=== PATIENT | male | born 1935 | race Caucasian/White ===

== ENCOUNTER 2022-08-01 12:52 | Inpatient (IN) | payer MEDICARE, OTHER, SELFPAY ==
[2022-08-01] VITALS (36 sets, daily range): BP systolic 150–203; BP diastolic 67–126; PULSE 85–118; RESP 18–31; TEMP 36.2–36.4; O2SAT 90–100
--- NOTE | ~2022-08-01 | XR_ITS ---
EXAMINATION: XR chest 2V Exam Date/Time: 08/01/2022 20:11 COMMISSARY AGENT HISTORY: SOB Comparison: None available. RESULT: Lines, tubes, and devices: None. Lungs and pleura: Diffuse reticular opacities with cuffing. Bilateral mild costophrenic angle blunti ng. Streaky bibasilar opacities. Cardiomediastinal silhouette: Stable. Other: No acute osseous or upper abdominal finding. IMPRESSION: Interstitial pulmonary edema. Small bilateral effusions. Bibasilar atelectasis. Reviewed, dictated and finalized at location K. ISSARY AGENT
--- NOTE | ~2022-08-01 | US_ITS ---
EXAMINATION: US venous doppler [facility] DATE: 08/02/2022 17:26 INDICATION: +DDimer . TECHNIQUE: Grayscale images without and with compression and Doppler images of the bilateral lower ex tremity veins were obtained. COMPARISON: None FINDINGS: The right common femoral vein, profunda (deep) femoral vein, femoral vein, popliteal vein, peroneal v ein, posterior tibial veins, gastrocnemius vein, and greater saphenous vein are patent. Harding's cyst. The left common femoral vein, profunda femoral vein, femoral vein, popliteal vein, peroneal vein, pos terior tibial veins, gastrocnemius vein, and greater saphenous vein are patent. IMPRESSION: 1. Patent bilateral lower extremity veins. No evidence of deep venous thrombosis. Reviewed, dictated and finalized at location K. EL OCCUPATIONAL THERAPIST IMPRESSION: 1. Patent bilateral lower extremity veins. No evidence of deep venous thrombos is.
--- NOTE | ~2022-08-01 | CT_ITS ---
EXAMINATION: CTA chest PE protocol DATE: 08/01/2022 22:43 INDICATION: difficulty breathin TECHNIQUE: Computed tomography angiography (CTA) of the chest was performed with 100 mL Omnipaque-350 intravenous contrast timed to evaluate the pulmonary arteries. Coronal maximum intensity projection 3D-reconstructions were created by the technologist. The dose-length product (DLP) was 361.93 mGy-cm. Automated exposure control and iterative reconstruction technique were employed. COMPARISON: None. FINDINGS: Lung parenchyma and airways: Fissural fluid. Interlobular septal thickening. Senescent changes. Depen dent atelectasis. Pleura: Moderate volume bilateral pleural fluid collections.. Thoracic inlet, axillae and chest wall: Unremarkable. Thoracic aorta: Moderate arch calcification. Mediastinum: Normal. Heart and pericardium: Normal. Coronary artery calcifications: Moderate. Upper abdomen: No significant finding. Bones: No acute osseous finding. Pulmonary arteries: Study quality: Adequate. No pulmonary emboli detected. IMPRESSION: No CT evidence of acute pulmonary embolus. Pulmonary edema. Moderate bilateral pleural effusions. Reviewed, dictated and finalized at location K. IC HEALTH TECHNOLOGIST
--- NOTE | ~2022-08-01 | US_ITS ---
EXAMINATION: US renal BI DATE: 08/02/2022 17:26 INDICATION: renal insuff TECHNIQUE: Multiple grayscale and Doppler ultrasound images of the kidneys were obtained. COMPARISON: None. FINDINGS: The right kidney measures 10.4 x 5.1 x 5.6 cm. The left kidney measures 10.8 x 5.8 x 6.1 cm. The kidn eys demonstrate normal parenchymal echogenicity. There is no hydronephrosis. The bladder is normal. IMPRESSION: Unremarkable renal sonogram findings. Reviewed, dictated and finalized at location K. LACE TIPPING MACHINE OPERATOR
--- NOTE | 2022-08-01 20:26 | ECG_ITS ---
Measurements Intervals [place] Rate: 92 P: -1 MD: 143 QRS: -35 QRSD: 133 T: 127 QT: 378 QTc: 468 Interpretive Statements SINUS RHYTHM LEFT AXIS DEVIATION INTRAVENTRICULAR CONDUCTION DELAY LEFT VENTRICULAR HYPERTROPHY AND ST-T CHANGE CANNOT RULE OUT SEPTAL INFARCT, AGE INDETERMINATE BASELINE ARTIFACT- I, II, AVR, V1, V3, V6 ABNORMAL ECG NO PREVIOUS ECG AVAILABLE FOR COMPARISON Electronically Signed On 08-02-2022 6:52:38 COLD MEAT CHEF by Abhishek Downey D.O.
[2022-08-01 20:47] LABS: Basophils Absolute Auto 0.1 K/mm3 (0.0-0.1); Basophils Percent Auto 0.7 % (0.2-1.2); Eosinophils Absolute Auto 0.3 K/mm3 (0-0.3); Eosinophils Percent Auto 2.6 % (0-4.4); Hematocrit 36.3 % (42.0-52.0); Hemoglobin 11.6 g/dL (14.0-18.0); Immature Granulocyte Percent A 0.9 % (0-0.5); Lymphocytes Absolute Auto 1.76 K/mm3 (0.9-3.2); Lymphocytes Percent Auto 15.4 % (18.3-44.2); Mean Corpuscular Hemoglobin 29.6 pg (26-34); Mean Corpuscular Volume 92.6 fl (80-100); Mean Platelet Volume 9.9 fl (7.4-10.4); Monocytes Percent Auto 8.9 % (2.6-8.5); Neutrophils Absolute Auto 8.2 K/mm3 (1.3-6.7); Neutrophils Percent Auto 71.5 % (45.5-73.1); Platelet Count Result 326 k/mm3 (150-375); Red Blood Count 3.92 M/mm3 (4.6-6.20); Red Cell Distribution Width 14.2 % (11.5-14.5); White Blood Count 11.4 K/mm3 (4.5-10.0)
[2022-08-01] MEDS: IPRATROPIUM BR 0.02% INH SOLN 0.5 MG/2.5 ML VIAL 1 MG INHALATION (20:47)
[2022-08-01] MEDS: ALBUTEROL SULFATE NEB 2.5 MG/3 ML INH 15 MG INHALATION (20:47)
[2022-08-01 20:57] LABS: Alanine Aminotransferase 35 U/L (6-50); Albumin Level 4.1 g/dL (3.5-5.1); Alkaline Phosphatase 105 U/L (38-126); Anion Gap 4 mmol/L (8-16); Aspartate Amino Transferase 24 U/L (17-59); Bilirubin,Total 0.5 mg/dL (0.2-1.3); Blood Urea Nitrogen 27 mg/dL (9-20); Calcium 8.5 mg/dL (8.4-10.2); Carbon Dioxide 26 mmol/L (22-30); Chloride 105 mmol/L (98-107); Estimated CRCL calculation 34 ml/min; Estimated Glomerular Filt Rate 48; Glucose 256 mg/dL (65-110); Magnesium 2.2 mg/dL (1.6-2.3); Potassium 4.6 mmol/L (3.4-5.0); Sodium 135 mmol/L (137-145)
[2022-08-01 21:10] LABS: D Dimer 1.46 ug/mL (<0.48)
[2022-08-01 21:18] LABS: NT Pro B Type Natriuretic Pept 5380 pg/mL (5-100)
[2022-08-01] MEDS: predniSONE 20 MG TABLET 40 MG PO (21:36)
[2022-08-01] MEDS: FUROSEMIDE INJ 40 MG/4 ML VIAL IV PUSH (21:37)
[2022-08-01 23:04] LABS: Influenza A QL RT-PCR Negative (Negative); Influenza B QL RT-PCR Negative (Negative); RSV RNA, RT-PCR Negative (Negative); SARS-CoV-2 RNA PCR Negative
--- NOTE | 2022-08-01 23:21 | ED.SOB ---
HPI - SOB/Dyspnea General Chief Complaint: Shortness of Breath/Dyspnea Stated Complaint: woke in the morning X2 days with SOB Time Seen by Provider: 08/01/22 20:06 History of Present Illness HPI Narrative: Patient states that he woke up about 2 days ago, feel like he was short of breath, when he sits up things seem to get better, and he went about his day. This morning when he woke up he was again short of breath and this again improved when he sat up, so he decided he should probably come into the hospital. Denies any chest pain, cough, fevers or chills, has never had any issues with his heart or lungs in the past. Related Data Home Medications Medication Instructions Recorded Confirmed aspirin 81 mg tablet,delayed 81 mg PO DAILY 05/08/22 release (Adult Low Dose Aspirin) Allergies Allergy/AdvReac Type Severity Reaction Status Date / Time No Known Allergies Allergy Unverified 05/08/22 13:00 Review of Systems Review of Systems: CONST: No fever. HEENT: No sore throat C/V: No chest pain RESP: Orthopnea GI: No abdominal distention : No dysuria. M/S: No joint pain. SKIN: No rash. NEURO: [No headache or focal numbness or weakness] PSYCH: [No depression] FOR[facility]LY [facility], [facility] Past Medical History Medical History Diabetes Dyslipidemia Need for vaccination Peripheral neuropathy Family History Family History (Updated 08/02/22 @ 03:03 by Daniella Herman RN) Other Unknown family medical history Social History Social History Smoking status: Never smoker Alcohol intake: current Substance use: never Agree to blood products: Yes Exam Narrative: EXAMINATION OF ORGAN SYSTEMS/BODY AREAS: Constitutional: Vital signs per nursing GENERAL: Tachypneic HEAD: Normal with no signs of head trauma. EYES: EOMI, conjunctiva normal ENT: Hearing grossly intact LUNGS: Labored breathing. Wheezes upper lung tinsley HEART: [Regular rate and rhythm] ABD: [Soft], [nontender to palpation] EXT: Normal range of motion SKIN: [No rashes or lesions.] NEURO: [Alert and oriented x 3. No gross focal sensory or strength deficits.] PSYCH: Normal affect Course Vital Signs Vital signs: Vital Signs Temperature 97.6 F 08/01/22 13:09 Pulse Rate 91 08/01/22 13:09 Respiratory Rate 20 08/01/22 13:09 Blood Pressure 162/84 H 08/01/22 13:09 Pulse Oximetry 98 08/01/22 13:09 Oxygen Delivery Room Air 08/01/22 13:09 Temperature 97.1 F L 08/01/22 15:10 Pulse Rate 102 H 08/02/22 02:14 Respiratory Rate 18 08/02/22 02:14 Blood Pressure 154/65 H 08/02/22 02:14 Pulse Oximetry 93 08/02/22 02:14 Oxygen Delivery Room Air 08/01/22 20:10 MDM - SOB/Dyspnea MDM Narrative Medical decision making narrative: 87-year-old male presenting with new onset dyspnea for the last 2 days, vital signs within acceptable limits here, on exam he does appear to be tachypneic and with some mildly labored respirations, given the worsening of symptoms when he lays flat, I am concerned that he may have developed heart failure, and concern for possible recent PR or PE, also consider pneumonia, COPD as he does have a history of smoking but he has quit. I did try some breathing treatments, as well as cardiac work-up, he does have a mildly elevated troponin, EKG - 12-Lead: Performed at 2046. Interpreted by me. [Sinus rhythm]. Rate 92. Left axis. NV-interval 143. QRS duration 133. QTc 468. Some mild ST depressions and lateral leads and possible elevation in V2; I did review the EMR but there was no EKG for comparison. Patient however does not have any chest pain at this time, thus I do not feel he requires any emergent/urgent cath at this time. elevated D-dimer and BNP, chest x-ray and CT chest reviewed/interpreted by myself showing pulmonary edema and bilateral pleural effusions. Patient started on Lasix here, I did discuss the case w
--- NOTE | 2022-08-01 23:38 | PM.IMHP ---
H&P: HPI History of Present Illness Date/Time: 08/01/22 23:38 Chief Complaint: Shortness of breath Narrative: Patient is a an 87-year-old male with past medical history significant for type diabetes mellitus, dyslipidemia. Patient presents to the emergency room after having 2 episodes of paroxysmal nocturnal dyspnea, patient denies any cough, sputum production, fevers, rigors, chills, syncope, near syncope, chest pain, no leg swelling, no increased abdominal girth. Preliminary workup was significant for an EKG was reported as: SINUS RHYTHM LEFT AXIS DEVIATION [QRS AXIS < -30] INTRAVENTRICULAR CONDUCTION DELAY [130+ ms QRS DURATION] LEFT VENTRICULAR HYPERTROPHY AND ST-T CHANGE [VOLTAGE CRITERIA PLUS ST/T ABNORMALITY] POSSIBLE SEPTAL MYOCARDIAL INFARCTION , OF INDETERMINATE AGE [30 ms Q WAVE IN V1/V2] NO PREVIOUS ECG AVAILABLE FOR COMPARISON. PATIENT TESTED NEGATIVE FOR INFLUENZA TYPE A, INFLUENZA TYPE B RSV AND COVID-19 A CHEST X-RAY WAS REPORTED : IMPRESSION: Interstitial pulmonary edema. Small bilateral effusions. Bibasilar atelectasis. A CTA OF THE LUNGS WAS REPORTED : FINDINGS:? Lung parenchyma and airways: Fissural fluid. Interlobular septal thickening. Senescent changes. Dependent atelectasis. Pleura: Moderate volume bilateral pleural fluid collections.. Thoracic inlet, axillae and chest wall: Unremarkable. Thoracic aorta: Moderate arch calcification. Mediastinum: Normal. Heart and pericardium: Normal. Coronary artery calcifications: Moderate. Upper abdomen: No significant finding. Bones: No acute osseous finding. Pulmonary arteries: Study quality: Adequate. No pulmonary emboli detected. IMPRESSION: No CT evidence of acute pulmonary embolus. Pulmonary edema. Moderate bilateral pleural effusions. Review of Systems Review of Systems: SHORTNESS OF BREATH FOR 2 CONSECUTIVE DAYS WAKES UP IN THE MIDDLE OF THE NIGHT WITH PND Constitutional: Constitutional: Denies chills, Denies fatigue, Denies fever(s), Denies lethargy, Denies malaise, Denies night sweats, Reports stops breathing during sleep and Denies weakness Eyes: Eyes: Denies change in vision ENT: Denies dysphagia, Denies vertigo, Denies dizziness, Denies nasal congestion, Denies nasal discharge and Denies odynophagia Cardiovascular: Cardiovascular: Denies chest pain, Denies syncope, Denies irregular heart rhythm, Denies leg edema, Denies lightheadedness, Denies radiating jaw, neck or arm pain and Reports paroxysmal nocturnal dyspnea Respiratory: Respiratory: Denies chest congestion, Denies cough, Denies excessive phlegm production, Denies pain on inspiration, Reports dyspnea and Denies wheezing Gastrointestinal: Gastrointestinal: Denies abdominal pain, Denies dyspepsia, Denies heartburn, Denies diarrhea, Denies nausea and Denies vomiting Genitourinary: Genitourinary: Reports no additional male genitourinary complaints, Reports as per HPI and Denies dysuria Musculoskeletal: Musculoskeletal: Denies back pain, Denies myalgias, Denies joint swelling and Denies muscle weakness Integumentary/Breasts: Skin/Breast: Denies rash Neurologic: Denies vertigo, Denies dizziness, Denies focal weakness and Denies Sensory deficit (Neuro) Psychiatric: Psychiatric: Reports no additional psychiatric complaints and Reports as per HPI Endocrine: Endocrine: Denies cold intolerance, Denies flushing, Denies heat intolerance, Denies polyphagia, Denies polydipsia and Denies palpitations Hematologic/Lymphatic: Hematologic/Lymphatic: Reports no additional hematologic/lymphatic complaints and Reports as per HPI Allergic/Immunologic: Allergic/Immunologic: Reports no additional allergic/immunologic complaints and Reports as per HPI PMFSH Past Medical History Medical History Diabetes Dyslipidemia Need for vaccination Peripheral neuropathy Family History Family History (Updated 08/02/22 @ 03:03 by Daniella Herman R
[2022-08-02] VITALS (21 sets, daily range): BP systolic 128–163; BP diastolic 65–121; PULSE 85–112; RESP 12–28; TEMP 36.2–36.7; O2SAT 80–100; BMI 23.0; BMI 23.9
--- NOTE | 2022-08-02 03:23 | ADMGEN ---
This patient, Fercho Manning, was admitted to IMU Room 201-01 at 0230. Patient/family oriented to hospital policies and general routines including ID bracelet, bed and alarms, visiting hours, pain management, procedures, bathroom and other care routines, personal items, smoking policy, room service/diet, and visiting hours. Information on how to activate the Rapid Response Team has been discussed. Patient/Family are encouraged to report perceived risks to care and to ask questions if they do not understand what they are told or what they should do.
[2022-08-02 05:40] LABS: Troponin I 0.034 ng/mL (0.000-0.034)
--- NOTE | 2022-08-02 06:00 | ECHO_ITS ---
Patient Info Name: Fercho Manning Age: 87 years : 1935 Gender: Male Ht: 70 in Wt: 160 lbs BSA: 1.89 m2 HR: 87 bpm BP: 163 / 75 mmHg Heart Rhythm: Sinus Rhythm Technical Quality: Fair Exam Date: 08/02/2022 11:52 AM Exam Location: [facility] Pulmonary Exam Room: 201 Patient Status: Inpatient Admit Date: 08/01/2022 Staff Ordering Physician: Arti Anderson MD Senior Data Architect: Muriel Heller RDCS Attending Provider: Brittani Colunga MD Exam Type: CA echo doppler color flow Study Info Indications - new onset heart failure Complete two-dimensional, color flow and Doppler transthoracic echocardiogram is performed. Summary 1. Complete two-dimensional, color flow and Doppler transthoracic echocardiogram is performed. 2. Left ventricular chamber dimension is mildly enlarged. 3. Left ventricular systolic function is moderately reduced, estimated at 30-35%. 4. The left ventricular diastolic function is grade II diastolic dysfunction. 5. Right ventricular systolic function is normal. 6. Left atrial chamber dimension is mildly enlarged. 7. There is mild aortic valve regurgitation. 8. There is mild mitral valve regurgitation. 9. There is trace tricuspid valve regurgitation. Left Ventricle Left ventricular chamber dimension is mildly enlarged. Left ventricular systolic function is moderately reduced, estimated at 30-35%. There is no increased left ventricular wall thickness. The left ventricular diastolic function is grade II diastolic dysfunction. Global longitudinal strain is abnormal at -9 %. Right Ventricle Right ventricular chamber dimension is normal. Right ventricular systolic function is normal. Left Atria Left atrial chamber dimension is mildly enlarged. Right Atria Right atrial chamber dimension is normal. Atrial Septum Intact interatrial septum visualized by color flow imaging. Aortic Valve The aortic valve is not well visualized. There is no aortic valve stenosis. There is mild aortic valve regurgitation. There is mild aortic valve calcification. Pulmonic Valve The pulmonic valve is not well visualized. Mitral Valve The mitral valve has normal leaflets. There is mild mitral valve regurgitation. The mitral valve annulus is mildly calcified. Tricuspid Valve The tricuspid valve leaflets are normal. There is trace tricuspid valve regurgitation. Pericardium/Pleural There is no pericardial effusion. Inferior Vena Cava Normal inferior vena cava with >50% collapse upon inspiration consistent with normal right atrial pressure. Aorta The aortic root size at the sinus of Valsalva is normal. Left Ventricular Outflow Tract Name Value Normal LVOT 2D LVOT Diameter 2.0 cm LVOT Doppler LVOT Peak Gradient 5 mmHg LVOT Mean Gradient 3 mmHg LVOT VTI 19 cm LVOT VTI/AV VTI Ratio 1.0 LVOT Stroke Volume 57 ml LVOT CO 14.2 l/min LVOT CI 7.5 l/min/m2
[2022-08-02] MEDS: ATORVASTATIN 10 MG TABLET PO (08:15)
[2022-08-02] MEDS: ASPIRIN 81 MG ENTERIC TABLET PO (08:15)
[2022-08-02] MEDS: ENOXAPARIN 40 MG/0.4 ML SYRINGE SUB-Q (08:15)
[2022-08-02] MEDS: FUROSEMIDE INJ 40 MG/4 ML VIAL IV PUSH ×2 (08:16→16:33)
[2022-08-02 08:28] LABS: Anion Gap 10 mmol/L (8-16); Blood Urea Nitrogen 27 mg/dL (9-20); Calcium 8.8 mg/dL (8.4-10.2); Carbon Dioxide 24 mmol/L (22-30); Chloride 102 mmol/L (98-107); Estimated CRCL calculation 34 ml/min; Estimated Glomerular Filt Rate 48; Glucose 311 mg/dL (65-110); Potassium 4.6 mmol/L (3.4-5.0); Sodium 136 mmol/L (137-145)
[2022-08-02 09:25] LABS: Hemoglobin A1C 7.6 % (<5.7)
--- NOTE | 2022-08-02 10:03 | PM.CNCAR ---
Assessment and Plan Assessment and plan (1) New onset of congestive heart failure: Code(s): I50.9 - Heart failure, unspecified Status: Acute (2) Elevated troponin: Code(s): R77.8 - Other specified abnormalities of plasma proteins Status: Acute Plan Continue intermittent IV diuresis for now. Will obtain an echo. Given elevated blood pressures (up to 200s systolics on presentation), will start ARB. Will start Jardiance. Further recommendations pending results of echo. History of Present Illness History of Present Illness Consult date/time: 08/02/22 10:03 Requesting physician: Arti Anderson MD Consult reason: congestive heart failure Reason For Visit: New Onset Heart Failure,Elevated Trop Narrative: We are being consulted for acute heart failure. This is an 87-year-old male with a history of diabetes who presented with shortness of breath that began about 2 days ago. Patient states that he woke up with acute shortness of breath and sweating. Has not had these symptoms before. No chest pain, palpitations, lightheadedness/dizziness, syncope. Patient states that he has been relatively healthy and even walks 2 miles 3x/week without issues. ER workup included CXR and CT scan which show pulmonary edema and pleural effusions. ECG without ischemic changes. BNP is elevated. Initial troponin was mildly elevated, but second one negative. Patient denies lower extremity edema. Review of Systems Review of Systems: 12-point ROS obtained. Negative, unless stated in HPI. [facility] Past Medical History Medical History Diabetes Dyslipidemia Need for vaccination Peripheral neuropathy Family History Family History Other Unknown family medical history Social History Social History Smoking status: Former smoker Tobacco type: cigarettes Alcohol intake: current Drinks per week: 2 Substance use: never Lack of Transportation: No Lack of Food: Never True Current Housing: I Have Housing Concerned About Future Housing: No Difficulty Paying Gas/Electric Bills: No Difficulty Paying for Meds: No Currently Unemployed: No Education: High School Diploma/GED Difficulty w/ Childcare or Family Care: No Spiritual care concerns: No Agree to blood products: Yes Meds Home Medications and Allergies Home Medications Medication Instructions Recorded Confirmed Type sitagliptin phosphate 100 mg 100 mg PO DAILY #90 tabs 03/23/22 08/02/22 Rx tablet (Januvia) aspirin 81 mg tablet,delayed 81 mg PO DAILY 05/08/22 08/02/22 History release (Adult Low Dose Aspirin) atorvastatin 10 mg tablet 10 mg PO DAILY #90 tabs 05/08/22 08/02/22 Rx metformin 1,000 mg tablet See Rx Instructions .Route 06/30/22 08/02/22 Rx .COMPLEX #180 tabs glimepiride 4 mg tablet 2 mg PO BID #90 tabs 07/25/22 08/02/22 Rx Allergies Allergy/AdvReac Type Severity Reaction Status Date / Time No Known Allergies Allergy Unverified 05/08/22 13:00 Vital Signs Vital Signs - 24 hr 08/01/22 13:09 08/01/22 15:10 08/01/22 20:04 Temperature 36.4 C 36.2 C L Pulse Rate 91 92 112 H Respiratory Rate 20 18 24 H Blood Pressure 162/84 H 154/70 H 186/78 H Pulse Oximetry 98 96 94 Oxygen Delivery Room Air Room Air 08/01/22 20:10 08/01/22 20:10 08/01/22 20:50 Temperature Pulse Rate 101 H 92 Respiratory Rate 19 Blood Pressure Pulse Oximetry Oxygen Delivery Room Air 08/01/22 21:50 08/01/22 20:08 08/01/22 20:10 Temperature Pulse Rate 97 118 H 101 H Respiratory Rate 26 H 25 H 23 H Blood Pressure 186/78 H Pulse Oximetry 93 95 Oxygen Delivery 08/01/22 20:21 08/01/22 20:30 08/01/22 20:45 Temperature Pulse Rate 100 101 H 94 Respiratory Rate 26 H 22 H 20 Blood Pressure Pulse Oximetry 96 93 95 Oxygen Delivery 08/01/22
[2022-08-02 10:22] LABS: Glucose Point of Care 458 mg/dl (65-105)
[2022-08-02 10:23] LABS: Glucose Point of Care 350 mg/dl (65-105)
[2022-08-02] MEDS: INSULIN ASPART (*BKC) 100 UNITS/ML 8 UNITS SUB-Q (10:28)
[2022-08-02] MEDS: LOSARTAN POTASSIUM 25 MG TABLET PO (10:53)
[2022-08-02] MEDS: EMPAGLIFLOZIN 10 MG TABLET PO (10:53)
[2022-08-02 11:35] LABS: Glucose Point of Care 386 mg/dl (65-105)
--- NOTE | 2022-08-02 12:22 | PM.IMPN ---
Progress Note: A&P Assessment and Plan (1) Acute CHF (congestive heart failure): Code(s): I50.9 - Heart failure, unspecified Status: Acute Assessment and Plan: BNP elevated. Chest x-ray consistent with pulmonary edema. Etiology of the reason for the development of CHF is unclear but suspect related to HTN. He has been started on IV Lasix. Urine output minimal so far. Patient clinically however has improved. Continue IV diuresis. Echo has been completed but results are pending. Follow up on echo results. Empagliflozin has been started. He has also been started on losartan. Further recommendation pending echo results. Appreciate Cardiology input. (2) Elevated troponin: Code(s): R77.8 - Other specified abnormalities of plasma proteins Status: Acute Assessment and Plan: Troponin is mildly elevated and most likely related to CHF exacerbation. Repeat troponin trending downward. EKG personally reviewed showing normal sinus rhythm with interventricular conduction delay and LVH with strain pattern. (3) Renal insufficiency: Code(s): N28.9 - Disorder of kidney and ureter, unspecified Status: Acute Assessment and Plan: Creatinine elevated 1.4 and unchanged on repeat. Unclear what his baseline creatinine function is since we have no old values to compare. He is tolerating the diuresis well. Continue to monitor closely. Will check renal ultrasound. (4) Diabetes: Code(s): E11.9 - Type 2 diabetes mellitus without complications Status: Acute Assessment and Plan: A1c 7.6. The patient's blood glucose was reviewed on 08/02 Glucose remains poorly controlled. Start AccuCheks covering with sliding scale. Hypoglycemia protocol will be available as needed. Holding metformin, glimepiride, and sitagliptin. Add Empagliflozin. (5) Hypertension: Code(s): I10 - Essential (primary) hypertension Status: Acute Assessment and Plan: Patient's blood pressure was reviewed on 08/02 Blood pressure poorly controlled. Losartan added. (6) Dyslipidemia: Code(s): E78.5 - Hyperlipidemia, unspecified Status: Acute Assessment and Plan: LFTs normal. Continue Lipitor. Plan +DDimer - CTA negative for PE. Check LE doppler. Subjective Date/time seen: 08/02/22 12:22 Interval history: 87yo male here for SOB and found to have CHF. Patient feels well today. No shortness of breath or chest pain. He had orthopnea and diaphoresis prior to admission but did not have those symptoms overnight. He feels well and is requesting discharge. Exam Narrative: AF 97.8 154/84 105 14 93% ra Gen - NARD Chest -right lung inspiratory crackles otherwise clear. CV - RRR S1/S2. Telemetry showing no significant dysrhythmias Abd - Soft, NT/ND, Positive BS Ext - No pedal edema Psych - Nml mood and affect Skin - Warm and dry Objective Data Vital Signs Vital Signs: Vital Signs - 24 hr 08/01/22 13:09 08/01/22 15:10 08/01/22 20:04 Temperature 97.6 F 97.1 F L Pulse Rate 91 92 112 H Respiratory Rate 20 18 24 H Blood Pressure 162/84 H 154/70 H 186/78 H Pulse Oximetry 98 96 94 Oxygen Delivery Room Air Room Air 08/01/22 20:10 08/01/22 20:10 08/01/22 20:50 Temperature Pulse Rate 101 H 92 Respiratory Rate 19 Blood Pressure Pulse Oximetry Oxygen Delivery Room Air 08/01/22 21:50 08/01/22 20:08 08/01/22 20:10 Temperature Pulse Rate 97 118 H 101 H Respiratory Rate 26 H 25 H 23 H Blood Pressure 186/78 H Pulse Oximetry 93 95 Oxygen Delivery 08/01/22 20:21 08/01/22 20:30 08/01/22 20:45 Temperature Pulse Rate 100 101 H 94 Respiratory Rate 26 H 22 H 20 Blood Pressure Pulse Oximetry 96 93 95 Oxygen Delivery 08/01/22 20:54 08/01/22 21:00 08/01/22 21:01 Temperature Pulse Rate 88 85 86 Respiratory Rate 19 21 H 21 H Blood Pressure 165/74 H 160/71 H Pulse Oximetry 100 100
[2022-08-02] MEDS: INSULIN ASPART (*BKC) 100 UNITS/ML SUB-Q (12:27)
[2022-08-02 16:19] LABS: Glucose Point of Care 193 mg/dl (65-105)
[2022-08-02 20:59] LABS: Glucose Point of Care 231 mg/dl (65-105)
[2022-08-03] VITALS (15 sets, daily range): BP systolic 102–144; BP diastolic 45–101; PULSE 75–100; RESP 16–18; TEMP 36.2–36.8; O2SAT 93–99
[2022-08-03 05:12] LABS: Hematocrit 36.1 % (42.0-52.0); Hemoglobin 11.7 g/dL (14.0-18.0); Mean Corpuscular HGB Conc 32.4 g/dl (32-36); Mean Corpuscular Hemoglobin 29.8 pg (26-34); Mean Corpuscular Volume 92.1 fl (80-100); Mean Platelet Volume 10.3 fl (7.4-10.4); Platelet Count Result 358 k/mm3 (150-375); Red Blood Count 3.92 M/mm3 (4.6-6.20); Red Cell Distribution Width 14.1 % (11.5-14.5); White Blood Count 12.3 K/mm3 (4.5-10.0)
[2022-08-03 05:25] LABS: Albumin Level 3.8 g/dL (3.5-5.1); Anion Gap 7 mmol/L (8-16); Blood Urea Nitrogen 35 mg/dL (9-20); Calcium 8.5 mg/dL (8.4-10.2); Carbon Dioxide 27 mmol/L (22-30); Chloride 103 mmol/L (98-107); Estimated CRCL calculation 27 ml/min; Estimated Glomerular Filt Rate 36; Glucose 177 mg/dL (65-110); Magnesium 2.3 mg/dL (1.6-2.3); Phosphorus 4.4 mg/dL (2.5-4.5); Sodium 137 mmol/L (137-145)
[2022-08-03 08:28] LABS: Glucose Point of Care 212 mg/dl (65-105)
[2022-08-03] MEDS: INSULIN ASPART (*BKC) 100 UNITS/ML SUB-Q ×3 (09:21→16:20)
[2022-08-03] MEDS: ENOXAPARIN 40 MG/0.4 ML SYRINGE SUB-Q (09:22)
[2022-08-03] MEDS: ATORVASTATIN 10 MG TABLET PO (09:23)
[2022-08-03] MEDS: EMPAGLIFLOZIN 10 MG TABLET PO (09:23)
[2022-08-03] MEDS: ASPIRIN 81 MG ENTERIC TABLET PO (09:23)
--- NOTE | 2022-08-03 11:51 | PM.PNCARD ---
Progress Note: A&P Assessment and Plan (1) New onset of congestive heart failure: Code(s): I50.9 - Heart failure, unspecified Status: Acute (2) Hypertension: Code(s): I10 - Essential (primary) hypertension Status: Acute (3) Renal insufficiency: Code(s): N28.9 - Disorder of kidney and ureter, unspecified Status: Acute (4) ENRIQUETA (acute kidney injury): Code(s): N17.9 - Acute kidney failure, unspecified Status: Acute (5) Elevated troponin: Code(s): R77.8 - Other specified abnormalities of plasma proteins Status: Acute (6) Diabetes: Code(s): E11.9 - Type 2 diabetes mellitus without complications Status: Acute Plan TTE showed new diagnosis of reduced LVEF, with LVEF at 30-35%. SCr worsened from 1.4 to 1.8 this morning. May have been overdiuresed. Will stop his Lasix. Hold his ARB. Once his ENRIQUETA resolves, would start Entresto on him, along with Spironolactone. Will start Coreg today. Continue with Jardiance. Given reduced LVEF, an ischemic evaluation is warranted. Ideally, coronary angiography is preferred. I discussed cardiac cath with the patient, including indications, procedural details, risks vs benefits. Discussed with the patient that if he does not want cardiac cath, then the other option would be a stress test, but that is not the ideal test. Given his ENRIQUETA, a cardiac cath could not be performed at this time. Since patient does not have any angina or signs of acute coronary syndrome, there would not be any urgency to performing cardiac cath, and could be performed as an outpatient. Patient states he needs some time to decide if he wants to undergo cardiac cath or stress test. Stress test could be performed as an inpatient while he is here, however, patient also wants to go home as soon as possible, therefore, it would also be reasonable to obtain this as an outpatient. We will have patient follow-up with us in clinic after discharge, and will further discuss ischemic evaluation as an outpatient. Subjective Date/time seen: 08/03/22 11:51 Interval history: Reason for visit: Acute heart failure exacerbation HPI: This is an 87-year-old male with a history of diabetes who presented with shortness of breath that began about 2 days ago. Patient states that he woke up with acute shortness of breath and sweating. Has not had these symptoms before. No chest pain, palpitations, lightheadedness/dizziness, syncope. Patient states that he has been relatively healthy and even walks 2 miles 3x/week without issues. ER workup included CXR and CT scan which show pulmonary edema and pleural effusions. ECG without ischemic changes.? BNP is elevated. Initial troponin was mildly elevated, but second one negative. Patient denies lower extremity edema. Date of service 08/03/2021: Patient is feeling well this morning. He denies any chest pain, shortness of breath, orthopnea. He states he wants to go home as soon as he can. Review of Systems Review of Systems: 8-point ROS obtained. Negative, unless stated in HPI. Exam Const: General: comfortable and no acute distress HENMT: Mouth: Yes moist mucous membranes Eyes: General: appearance normal, both eyes and all related structures Sclera: sclerae normal Neck: Neck: supple Resp: Effort & Inspection: normal respiratory effort Auscultation: clear to auscultation bilaterally Cardio: Rate: regular rate Rhythm: regular rhythm Heart sounds: no murmurs GI: GI Palp: Yes Soft to palpation and No Tenderness to palpation present (GI) Skin: General skin exam: normal color Neuro: Speech: normal speech Extrem: General: normal to inspection and no edema Psych: Mental Status: mental status grossly normal Affect: normal affect Objective Data Vital Signs Vital Signs: Vital Signs - 24 hr 08/02/22 12:00 08/02/22 12:00 08/02/22 16:00 Temperature 36.7 C 36.2 C L Pulse Rate 100 87 Respiratory Rate 12 14 Blood Pressure 15
[2022-08-03 11:57] LABS: Glucose Point of Care 265 mg/dl (65-105)
[2022-08-03] MEDS: carvediloL 6.25 MG TABLET PO ×2 (12:32→20:43)
[2022-08-03 16:44] LABS: Glucose Point of Care 342 mg/dl (65-105)
--- NOTE | 2022-08-03 17:57 | PM.IMPN ---
Progress Note: A&P Assessment and Plan (1) Acute CHF (congestive heart failure): Code(s): I50.9 - Heart failure, unspecified Status: Acute Assessment and Plan: BNP elevated. Chest x-ray consistent with pulmonary edema. Etiology of the reason for the development of CHF is unclear but suspect related to HTN. He has been started on IV Lasix. Patient clinically much improved. Echo with EF 30-35%, Grade II diastolic dysfucntion and mild valvular disease. Empagliflozin was started. Coreg added. Faisal noted so losartan stopped. Appreciate Cardiology input. (2) Elevated troponin: Code(s): R77.8 - Other specified abnormalities of plasma proteins Status: Acute Assessment and Plan: Troponin is mildly elevated and most likely related to CHF exacerbation. Repeat troponin trending downward. EKG personally reviewed showing normal sinus rhythm with interventricular conduction delay and LVH with strain pattern. (3) Renal insufficiency: Code(s): N28.9 - Disorder of kidney and ureter, unspecified Status: Acute Assessment and Plan: Creatinine elevated 1.4 on admission. Unclear what his baseline creatinine function is since we have no old values to compare. Cr to 1.8 with the diuresis. Renal US normal. Losartan and lasix held. Continue to monitor closely. (4) Diabetes: Code(s): E11.9 - Type 2 diabetes mellitus without complications Status: Acute Assessment and Plan: A1c 7.6. The patient's blood glucose was reviewed on 08/03 Glucose remains poorly controlled. Continue AccuCheks covering with sliding scale. Hypoglycemia protocol available as needed. Hold metformin, glimepiride. Resume sitagliptin at renal dose. Continue Empagliflozin. Would benefit from GLP-1 (5) Hypertension: Code(s): I10 - Essential (primary) hypertension Status: Acute Assessment and Plan: Patient's blood pressure was reviewed on 08/03 Blood pressure better controlled. Coreg added. (6) Dyslipidemia: Code(s): E78.5 - Hyperlipidemia, unspecified Status: Acute Assessment and Plan: LFTs normal. Continue Lipitor. Plan +DDimer - CTA negative for PE. LE doppler negative for DVT. Subjective Date/time seen: 08/03/22 17:57 Interval history: 87yo male here for SOB and found to have CHF. Slept well last night. No chest pain or shortness of breath. No real dyspnea on exertion but has been only walking to the bathroom. Exam Narrative: AF 97.4 142/67 76 18 99% ra Gen - NARD Chest - CTA bilaterally CV - RRR S1/S2. Telemetry showing no significant dysrhythmias Abd - Soft, NT/ND, Positive BS Ext - No pedal edema Psych - Nml mood and affect Skin - Warm and dry Objective Data Vital Signs Vital Signs: Vital Signs - 24 hr 08/02/22 18:00 08/02/22 20:00 08/02/22 20:00 Temperature 97.1 F L Pulse Rate 94 85 Respiratory Rate 16 Blood Pressure 128/65 Pulse Oximetry 100 93 Oxygen Delivery Room Air 08/02/22 20:00 08/02/22 23:39 08/03/22 00:00 Temperature 97.4 F L Pulse Rate 85 95 Respiratory Rate 16 Blood Pressure 142/71 H Pulse Oximetry 98 93 Oxygen Delivery Room Air 08/03/22 00:00 08/03/22 04:00 08/03/22 04:00 Temperature 98.3 F Pulse Rate 89 87 Respiratory Rate 16 Blood Pressure 135/64 Pulse Oximetry 97 97 Oxygen Delivery Room Air 08/03/22 04:00 08/03/22 08:00 08/03/22 08:00 Temperature 97.7 F Pulse Rate 84 85 100 Respiratory Rate 16 Blood Pressure 144/101 H Pulse Oximetry 94 Oxygen Delivery 08/03/22 08:00 08/03/22 11:56 08/03/22 12:05 Temperature 97.9 F Pulse Rate 90 Respiratory Rate 18 Blood Pressure 133/58 L Pulse Oximetry 94 98 98 Oxygen Delivery Room Air Room Air 08/03/22 12:00 08/03/22 10:00 08/03/22 12:00 Temperature Pulse Rate 89 82 Respiratory Rate Blood Pressure Pulse Oximetry 98 Oxygen Delivery Room Air
[2022-08-03 20:27] LABS: Glucose Point of Care 196 mg/dl (65-105)
[2022-08-04] VITALS (12 sets, daily range): BP systolic 109–135; BP diastolic 52–67; PULSE 68–92; RESP 14–18; TEMP 35.9–36.1; O2SAT 93–98
[2022-08-04 05:32] LABS: Basophils Absolute Auto 0.1 K/mm3 (0.0-0.1); Basophils Percent Auto 0.8 % (0.2-1.2); Eosinophils Absolute Auto 0.5 K/mm3 (0-0.3); Eosinophils Percent Auto 4.5 % (0-4.4); Hematocrit 33.7 % (42.0-52.0); Hemoglobin 10.9 g/dL (14.0-18.0); Immature Granulocyte Absolute 0.08 K/mm3 (0.00-0.031); Immature Granulocyte Percent A 0.7 % (0-0.5); Lymphocytes Absolute Auto 2.16 K/mm3 (0.9-3.2); Lymphocytes Percent Auto 19.7 % (18.3-44.2); Mean Corpuscular HGB Conc 32.3 g/dl (32-36); Mean Corpuscular Hemoglobin 29.2 pg (26-34); Mean Corpuscular Volume 90.3 fl (80-100); Mean Platelet Volume 10.2 fl (7.4-10.4); Monocytes Absolute Auto 1.3 K/mm3 (0.1-0.6); Monocytes Percent Auto 11.7 % (2.6-8.5); Neutrophils Absolute Auto 6.9 K/mm3 (1.3-6.7); Neutrophils Percent Auto 62.6 % (45.5-73.1); Platelet Count Result 330 k/mm3 (150-375); Red Blood Count 3.73 M/mm3 (4.6-6.20); Red Cell Distribution Width 13.7 % (11.5-14.5)
[2022-08-04 05:47] LABS: Albumin Level 3.4 g/dL (3.5-5.1); Anion Gap 6 mmol/L (8-16); Blood Urea Nitrogen 46 mg/dL (9-20); Calcium 7.9 mg/dL (8.4-10.2); Carbon Dioxide 27 mmol/L (22-30); Chloride 103 mmol/L (98-107); Estimated CRCL calculation 27 ml/min; Estimated Glomerular Filt Rate 36; Glucose 169 mg/dL (65-110); Phosphorus 4.7 mg/dL (2.5-4.5); Potassium 3.8 mmol/L (3.4-5.0); Sodium 136 mmol/L (137-145)
[2022-08-04 08:32] LABS: Glucose Point of Care 190 mg/dl (65-105)
[2022-08-04] MEDS: ASPIRIN 81 MG ENTERIC TABLET PO (09:14)
[2022-08-04] MEDS: carvediloL 6.25 MG TABLET PO ×2 (09:14→22:06)
[2022-08-04] MEDS: ATORVASTATIN 10 MG TABLET PO (09:14)
[2022-08-04] MEDS: EMPAGLIFLOZIN 10 MG TABLET PO (09:14)
[2022-08-04] MEDS: ENOXAPARIN 40 MG/0.4 ML SYRINGE SUB-Q (09:15)
[2022-08-04 12:16] LABS: Glucose Point of Care 277 mg/dl (65-105)
--- NOTE | 2022-08-04 12:20 | PM.IMPN ---
Progress Note: A&P Assessment and Plan (1) Acute CHF (congestive heart failure): Code(s): I50.9 - Heart failure, unspecified Status: Acute Assessment and Plan: BNP elevated. Chest x-ray consistent with pulmonary edema. Etiology of the reason for the development of CHF is unclear but suspect related to HTN. He has been started on IV Lasix. Patient clinically much improved. Echo with EF 30-35%, Grade II diastolic dysfucntion and mild valvular disease. Empagliflozin was started. Coreg added. Faisal noted so losartan and lasix stopped. Appreciate Cardiology input. (2) Elevated troponin: Code(s): R77.8 - Other specified abnormalities of plasma proteins Status: Acute Assessment and Plan: Troponin is mildly elevated and most likely related to CHF exacerbation. No complaints of chest pain. Repeat troponin trending downward. EKG personally reviewed showing normal sinus rhythm with interventricular conduction delay and LVH with strain pattern. (3) Renal insufficiency: Code(s): N28.9 - Disorder of kidney and ureter, unspecified Status: Acute Assessment and Plan: Creatinine elevated 1.4 on admission. Unclear what his baseline creatinine function is since we have no old values to compare. Cr to 1.8 with the diuresis. Renal US normal. Losartan and lasix held. Cr unchanged today. Continue to monitor closely. (4) Diabetes: Code(s): E11.9 - Type 2 diabetes mellitus without complications Status: Acute Assessment and Plan: A1c 7.6. The patient's blood glucose was reviewed on 08/04 Glucose remains poorly controlled. Continue AccuCheks covering with sliding scale. Hypoglycemia protocol available as needed. Hold metformin, glimepiride. Continue sitagliptin at renal dose. Continue Empagliflozin. Would benefit from GLP-1 (5) Hypertension: Code(s): I10 - Essential (primary) hypertension Status: Acute Assessment and Plan: Patient's blood pressure was reviewed on 08/04 Blood pressure better controlled. Continue Coreg (6) Dyslipidemia: Code(s): E78.5 - Hyperlipidemia, unspecified Status: Acute Assessment and Plan: LFTs normal. Continue Lipitor. Plan +DDimer - CTA negative for PE. LE doppler negative for DVT. Subjective Date/time seen: 08/04/22 12:20 Interval history: 87yo male here for SOB and found to have CHF. Up walking the halls. No chest pain, shortness of breath or dyspnea on exertion. Normal urine output. Eating well. + bowel movements. Exam Narrative: AF 96.7 135/66 87 14 93% ra Gen - NARD Chest - CTA bilaterally CV - RRR S1/S2. Tele showing no significant dysrhyhtmias Abd - Soft, NT/ND, Positive BS Ext - No pedal edema Psych - Nml mood and affect Skin - Warm and dry Objective Data Vital Signs Vital Signs: Vital Signs - 24 hr 08/03/22 14:00 08/03/22 16:00 08/03/22 16:00 Temperature 97.4 F L Pulse Rate 78 76 76 Respiratory Rate 18 Blood Pressure 142/67 H Pulse Oximetry 99 Oxygen Delivery 08/03/22 16:00 08/03/22 18:00 08/03/22 20:00 Temperature 97.1 F L Pulse Rate 75 77 Respiratory Rate 18 Blood Pressure 102/45 L Pulse Oximetry 99 98 Oxygen Delivery Room Air 08/03/22 20:43 08/03/22 20:00 08/03/22 20:00 Temperature Pulse Rate 77 77 77 Respiratory Rate 18 Blood Pressure Pulse Oximetry 98 Oxygen Delivery Room Air 08/03/22 22:00 08/03/22 23:36 08/04/22 00:00 Temperature 97.5 F L Pulse Rate 81 82 85 Respiratory Rate 16 Blood Pressure 112/49 L Pulse Oximetry 98 Oxygen Delivery 08/04/22 00:00 08/04/22 02:00 08/03/22 21:28 Temperature Pulse Rate 85 85 Respiratory Rate 16 Blood Pressure Pulse Oximetry 98 98 Oxygen Delivery Room Air Room Air 08/04/22 04:00 08/04/22 04:00 08/04/22 04:00 Temperature Pulse Rate 84 85 84 Respiratory Rate 16 Blood Pressure Pulse Oximetry 98 Ox
[2022-08-04] MEDS: INSULIN ASPART (*BKC) 100 UNITS/ML SUB-Q (13:09)
--- NOTE | 2022-08-04 15:08 | PM.PNCARD ---
Progress Note: A&P Assessment and Plan (1) New onset of congestive heart failure: Code(s): I50.9 - Heart failure, unspecified Status: Acute (2) Hypertension: Code(s): I10 - Essential (primary) hypertension Status: Acute (3) Renal insufficiency: Code(s): N28.9 - Disorder of kidney and ureter, unspecified Status: Acute (4) ENRIQUETA (acute kidney injury): Code(s): N17.9 - Acute kidney failure, unspecified Status: Acute (5) Elevated troponin: Code(s): R77.8 - Other specified abnormalities of plasma proteins Status: Acute (6) Diabetes: Code(s): E11.9 - Type 2 diabetes mellitus without complications Status: Acute Plan TTE showed new diagnosis of reduced LVEF, with LVEF at 30-35%. Does not appear to be volume overloaded on exam today. Continue to hold lasix and ARB because of ENRIQUETA Once his ENRIQUETA resolves, would start Entresto on him, along with Spironolactone. Contonue coreg, jardiance. Eventual ischemia evaluation as an outpatient. Will discuss in follow up with Dr. Barth. Subjective Date/time seen: 08/04/22 15:08 Cardiology follow up for HFrEF Feels well today. Denying any chest pain, shortness of breath, palpitations. Eager to go home. Review of Systems Review of Systems: All systems reviewed & are unremarkable except as noted in HPI and below Exam Const: General: comfortable and no acute distress HENMT: Mouth: Yes moist mucous membranes Eyes: General: appearance normal, both eyes and all related structures Sclera: sclerae normal Neck: Neck: supple Resp: Effort & Inspection: normal respiratory effort Auscultation: clear to auscultation bilaterally and diminished lung sounds Cardio: Rate: regular rate and tachycardic Rhythm: regular rhythm Heart sounds: no murmurs Skin: General skin exam: normal color Neuro: Speech: normal speech Extrem: General: normal to inspection and no edema Psych: Mental Status: mental status grossly normal Affect: normal affect Objective Data Vital Signs Vital Signs: Vital Signs - 24 hr 08/03/22 16:00 08/03/22 16:00 08/03/22 16:00 Temperature 36.3 C L Pulse Rate 76 76 Respiratory Rate 18 Blood Pressure 142/67 H Pulse Oximetry 99 99 Oxygen Delivery Room Air 08/03/22 18:00 08/03/22 20:00 08/03/22 20:43 Temperature 36.2 C L Pulse Rate 75 77 77 Respiratory Rate 18 Blood Pressure 102/45 L Pulse Oximetry 98 Oxygen Delivery 08/03/22 20:00 08/03/22 20:00 08/03/22 22:00 Temperature Pulse Rate 77 77 81 Respiratory Rate 18 Blood Pressure Pulse Oximetry 98 Oxygen Delivery Room Air 08/03/22 23:36 08/04/22 00:00 08/04/22 00:00 Temperature 36.4 C L Pulse Rate 82 85 85 Respiratory Rate 16 16 Blood Pressure 112/49 L Pulse Oximetry 98 98 Oxygen Delivery Room Air 08/04/22 02:00 08/03/22 21:28 08/04/22 04:00 Temperature Pulse Rate 85 84 Respiratory Rate Blood Pressure Pulse Oximetry 98 Oxygen Delivery Room Air 08/04/22 04:00 08/04/22 04:00 08/04/22 06:00 Temperature Pulse Rate 85 84 78 Respiratory Rate 16 Blood Pressure Pulse Oximetry 98 Oxygen Delivery Room Air 08/04/22 08:00 08/04/22 09:14 08/04/22 08:00 Temperature 35.9 C L Pulse Rate 84 84 Respiratory Rate 14 Blood Pressure 135/66 Pulse Oximetry 93 Oxygen Delivery Room Air 08/04/22 08:00 08/04/22 10:00 08/04/22 12:00 Temperature 35.9 C L Pulse Rate 92 87 75 Respiratory Rate 14 Blood Pressure 131/57 L Pulse Oximetry 96 Oxygen Delivery 08/04/22 12:00 08/04/22 12:00 08/04/22 14:00 Temperature Pulse Rate 77 70 Respiratory Rate Blood Pressure Pulse Oximetry Oxygen Delivery Room Air Intake/Output Intake/Output: Intake & Output 08/01/22 08/02/22 08/03/22 08/04/22 23:59 23:59 23:59 23:59 Intake Total 730 1710 480 Output Total 700 900 Balance 30 810 480 Meds/Results M
[2022-08-04 16:20] LABS: Glucose Point of Care 188 mg/dl (65-105)
[2022-08-04 22:08] LABS: Glucose Point of Care 226 mg/dl (65-105)
[2022-08-05] VITALS: BP 119/53; PULSE 75; RESP 16; TEMP 36.4; O2SAT 99
--- NOTE | 2022-08-05 01:00 | PC.NURSE ---
This patient, Fercho Manning, was transferred to room [facility]02 on 08/05/22 at 0100. Personal belongings sent with patient. Report given to MARK Parisi. Appropriate documentation sent with patient.
--- NOTE | 2022-08-05 01:18 | ADMGEN ---
This patient, Fercho Manning, was tranferred to [facility] Surg Room 322-02. Patient/family oriented to hospital policies and general routines including ID bracelet, bed and alarms, visiting hours, pain management, procedures, bathroom and other care routines, personal items, smoking policy, room service/diet, and visiting hours. Information on how to activate the Rapid Response Team has been discussed. Patient/Family are encouraged to report perceived risks to care and to ask questions if they do not understand what they are told or what they should do.
[2022-08-05 01:20] VITALS: BP 134/54; PULSE 79; RESP 18; TEMP 36.1; O2SAT 99
[2022-08-05 05:19] VITALS: BP 136/67; PULSE 87; RESP 20; TEMP 36.4; O2SAT 98
[2022-08-05 07:51] LABS: Anion Gap 6 mmol/L (8-16); Blood Urea Nitrogen 41 mg/dL (9-20); Carbon Dioxide 28 mmol/L (22-30); Chloride 106 mmol/L (98-107); Estimated CRCL calculation 27 ml/min; Estimated Glomerular Filt Rate 36; Glucose 170 mg/dL (65-110); Potassium 4.2 mmol/L (3.4-5.0); Sodium 140 mmol/L (137-145)
[2022-08-05 08:00] LABS: Glucose Point of Care 188 mg/dl (65-105)
[2022-08-05 08:41] VITALS: PULSE 87
[2022-08-05] MEDS: ASPIRIN 81 MG ENTERIC TABLET PO (08:41)
[2022-08-05] MEDS: carvediloL 6.25 MG TABLET PO (08:41)
[2022-08-05] MEDS: ATORVASTATIN 10 MG TABLET PO (08:41)
[2022-08-05] MEDS: EMPAGLIFLOZIN 10 MG TABLET PO (08:42)
[2022-08-05] MEDS: ENOXAPARIN 40 MG/0.4 ML SYRINGE SUB-Q (08:42)
[2022-08-05 11:51] LABS: Glucose Point of Care 241 mg/dl (65-105)
[2022-08-05] MEDS: INSULIN ASPART (*BKC) 100 UNITS/ML SUB-Q (12:05)
--- NOTE | 2022-08-05 12:09 | PM.PNCARD ---
Progress Note: A&P Assessment and Plan (1) Heart failure with reduced ejection fraction: Code(s): I50.20 - Unspecified systolic (congestive) heart failure Status: Acute Assessment and Plan: patient with CHF with reduced ejection fraction. His coronary risk factors including advanced age and diabetes mellitus. Ischemic evaluation is warranted. Due to renal insufficiency, cardiac catheterization was deferred at this time. - continue optimal tolerable medical treatment for CHF with reduced ejection fraction. Patient is currently on beta-anil, ARB (prefer ARNI) and SGLT2i. - Patient is eager to go home. He would like to proceed with ischemic evaluation as an outpatient. Patient was advised to call our clinic to schedule an appointment. He verbalized understanding. -Other medical management as per primary team. Subjective Date/time seen: 08/05/22 12:09 Interval history: date of service 08/05/2022- patient reports significant improvement in his shortness of breath. He denies any chest pain. He is eager to go home and wants to have ischemic evaluation as an outpatient. He states that he does not want to stay in the hospital. Exam Narrative: PHYSICAL EXAMINATION: GENERAL: Elderly male, Alert, oriented, no acute distress MENTAL STATUS: affect appropriate to mood EYES: Extraocular movements intact, no pallor EARS: External ears appear normal, hearing grossly normal NOSE: Normal and patent, no discharge MOUTH: Mucous membranes moist, tongue normal NECK: Supple, no JVD CHEST: clear to auscultation HEART: Normal rate, regular rhythm, normal S1 and S2 ABDOMEN: Soft, nontender NEUROLOGICAL: Alert, oriented, normal speech, no gross motor deficits MUSCULOSKELETAL: No major deformity, no amputation EXTREMITIES: No pedal edema, no clubbing, no cyanosis SKIN: no rash on the exposed area, no cyanosis PSYCHIATRIC: Normal mood, appropriate affect Objective Data Vital Signs Vital Signs: Vital Signs - 24 hr 08/04/22 14:00 08/04/22 16:00 08/04/22 16:00 Temperature 35.9 C L Pulse Rate 70 68 Respiratory Rate 18 Blood Pressure 109/52 L Pulse Oximetry 98 Oxygen Delivery Room Air 08/04/22 20:00 08/04/22 22:06 08/04/22 20:00 Temperature 36.1 C L Pulse Rate 73 76 73 Respiratory Rate 18 18 Blood Pressure 126/67 Pulse Oximetry 97 97 Oxygen Delivery Room Air 08/04/22 20:00 08/05/22 00:00 08/05/22 01:20 Temperature 36.4 C 36.1 C L Pulse Rate 75 75 79 Respiratory Rate 16 18 Blood Pressure 119/53 L 134/54 L Pulse Oximetry 99 99 Oxygen Delivery 08/05/22 05:19 08/05/22 08:41 08/05/22 08:00 Temperature 36.4 C Pulse Rate 87 87 Respiratory Rate 20 Blood Pressure 136/67 Pulse Oximetry 98 Oxygen Delivery Room Air Intake/Output Intake/Output: Intake & Output 08/02/22 08/03/22 08/04/22 08/05/22 23:59 23:59 23:59 23:59 Intake Total 730 1710 1020 440 Output Total 700 900 380 Balance 30 810 640 440 Meds/Results Medications: Active Medications Generic Name Dose Route Start Last Admin Trade Name Freq PRN Reason Stop Dose Admin Aspirin 81 mg 08/02/22 09:00 08/05/22 08:41 Aspirin 81 Mg Enteric Tablet PO 81 mg DAILY SHAHID Administration Atorvastatin Calcium 10 mg 08/02/22 09:00 08/05/22 08:41 Atorvastatin 10 Mg Tablet PO 10 mg DAILY SHAHID Administration Carvedilol 6.25 mg 08/03/22 11:50 08/05/22 08:41 Carvedilol 6.25 Mg Tablet PO 6.25 mg Q12HR SHAHID Administration Dextrose 12.5 gm 08/02/22 08:37 Dextrose 50% 25 Gm/50 Ml Syringe IV PUSH PRN PRN Hypoglycemia Protocol Empagliflozin 10 mg 08/02/22 10:05 08/05/22 08:42 Empagliflozin 10 Mg Tablet PO 10 mg DAILY SHAHID Administration Enoxaparin Sodium 40 mg 08/02/22 09:00 08/05/22 08:42 Enoxaparin 40 Mg/0.4 Ml Syringe SUB-Q 40 mg DAILY SHAHID Administration Glucagon 1 mg 08/02/22 08:37 Glucagon For Inj 1 Mg Vi
[2022-08-05 14:00] VITALS: BP 121/58; PULSE 67; RESP 20; TEMP 36.3; O2SAT 100
--- NOTE | 2022-08-05 15:32 | PM.DS ---
DS: Admitting Diagnosis Discharge Date 08/05/22 Admitting Diagnosis Shortness of breath DS: Discharge Diagnosis Discharge Diagnosis (1) Acute CHF (congestive heart failure): Code(s): I50.9 - Heart failure, unspecified Status: Acute (2) Elevated troponin: Code(s): R77.8 - Other specified abnormalities of plasma proteins Status: Acute (3) Renal insufficiency: Code(s): N28.9 - Disorder of kidney and ureter, unspecified Status: Acute (4) Diabetes: Code(s): E11.9 - Type 2 diabetes mellitus without complications Status: Acute (5) Hypertension: Code(s): I10 - Essential (primary) hypertension Status: Acute (6) Dyslipidemia: Code(s): E78.5 - Hyperlipidemia, unspecified Status: Acute DS: Summary Hospital Course Reason for hospitalization: 87yo male here for SOB and found to have CHF. Please see H&P for details Hospital Course: Patient presents with complaints of SOB. BNP was elevated.? Chest x-ray consistent with pulmonary edema.? Etiology of the reason for the development of CHF is unclear but suspect related to HTN. He has been started on IV Lasix. Patient clinically improved. Echo with EF 30-35%, Grade II diastolic dysfunction and mild valvular disease.? Troponin is mildly elevated and most likely related to CHF exacerbation.? No complaints of chest pain. Repeat troponin trended downward.? EKG personally reviewed showing normal sinus rhythm with interventricular conduction delay and LVH with strain pattern. Coreg added. ENRIQUETA noted so losartan and lasix stopped. Creatinine elevated 1.4 on admission.? Unclear what his baseline creatinine function is since we have no old values to compare. Cr to 1.8 with the diuresis. Renal US normal. A1c 7.6.? The patient's blood glucose was elevated at times. We held his metformin, glimepiride. We continued sitagliptin at renal dose. Empagliflozin added but contraindicated with CrCl<30 (CrCl 27) so not continued. +DDimer but CTA negative for PE. LE doppler negative for DVT. He did well. He was up walking in halls. He overall did well and was able be discharged home on 08/05/2022. Status at Discharge Cognitive/behavioral status at discharge: Stable Time Spent with Patient Time attestation: Total time spent providing and/or coordinating discharge services: 38 minutes Time spent: Greater than 30 minutes Exam Narrative: AF 97.4 121/58 67 20 100% ra Gen - NARD Chest - CTA bilaterally CV - RRR S1/S2 Abd - Soft, NT/ND, Positive BS Ext - No pedal edema Psych - Nml mood and affect Skin - Warm and dry DS: Data Data Completed and Pending Labs on day of discharge: Labs from last 24 hours 08/05/22 08/05/22 08/05/22 11:49 07:52 06:54 Sodium 140 Potassium 4.2 Chloride 106 Carbon Dioxide 28 Anion Gap 6 L BUN 41 H Creatinine 1.80 H Estim Creat Clear Calc 27 Estimated GFR 36 L Glucose 170 H POC Capillary Glucose 241 H 188 H Calcium 8.0 L 08/04/22 08/04/22 20:47 15:43 Sodium Potassium Chloride Carbon Dioxide Anion Gap BUN Creatinine Estim Creat Clear Calc Estimated GFR Glucose POC Capillary Glucose 226 H 188 H Calcium Discharge Plan Discharge Attending physician on discharge: Anish Schilling Consulting providers: Clair Abernathy Discharging Clinician: Anish Schilling Anticipated Discharge Date/Time: 08/05/22 15:46 Patient Disposition: Home, Self-Care Activity: as tolerated Diet: heart healthy Discharge Instructions: Please check glucose before meals and before bed. Record and bring into your doctor for review. Take precautions to avoid falls. Rise slowly from a lying or sitting position. Pause before standing or walking. Check daily morning weights after voiding. Call your doctor if you gain more than 3 lb in 2 days or 5 lb in 1 week. Contact your doctor or call 911 and come to the [facility]
== END 2022-08-05 16:28 | disposition home or self-care (01) | DRG 291 ==
LOC: ANHED 20:06 → ANHIMU 08-02 01:59 → ANH3MEDSUR 08-05 15:47 → ANHIMU 08-08 11:40
PROVIDERS: Admitting Provider Internal Medicine; Emergency Provider Emergency Medicine; PCP Family Medicine; Visit Provider Internal Medicine
DX: I11.0 Hypertensive heart disease with heart failure (principal); I50.21 Acute systolic (congestive) heart failure; N17.9 Acute kidney failure, unspecified; E78.5 Hyperlipidemia, unspecified; E11.42 Type 2 diabetes mellitus with diabetic polyneuropathy; R77.8 Other specified abnormalities of plasma proteins; Z20.822 Contact with and (suspected) exposure to COVID-19; Z79.82 Long term (current) use of aspirin; Z87.891 Personal history of nicotine dependence
CPT/HCPCS: 36415; 71046; 71275; 76775; 80048; 80053; 80069; 82948; 83036; 83735; 83880; 84443; 84484; 85025; 85027; 85380; 87637; 93005; 93306; 93970; 94640; 96374; 99285; A9270; J1650; J1815; J1940; J7512; Q9967